=== PATIENT | male | born 1970 | race Caucasian/White ===

== ENCOUNTER 2021-08-12 08:23 | Emergency (ER) | payer OTHER ==
[2021-08-12 08:40] VITALS: BP 126/88; PULSE 86; TEMP 97.3; BMI 25.1
[2021-08-13 11:08] LABS: SARS-CoV-2 NAA Detected (Not Detected)
== END 2021-08-12 11:23 | disposition home or self-care (01) ==
LOC: JER 08:23
DX: U07.1 COVID-19 (principal)
CPT/HCPCS: 87804; 99283-25; C9803-CS; U0003; U0005